=== PATIENT | female | born 1960 | race Caucasian/White ===

== ENCOUNTER 2018-12-23 21:44 | Emergency (ER) | payer OTHER ==
[~2018-12-23] VITALS: Ht 167.6 cm; Wt 90.9 kg
[2018-12-23] MEDS ORDERED: PREM0.3T2 PO (21:51)
[2018-12-23] MEDS ORDERED: OMEP10CASR PO (21:51)
[2018-12-23] MEDS ORDERED: MORPHINE 4 MG/ML 1ML VIAL/SYRINGE (J2270) As Ordered ONE (22:07)
[2018-12-23] MEDS ORDERED: ONDANSETRON 4MG/2ML VIAL (J2405) As Ordered ONE (22:07)
[2018-12-23] MEDS ORDERED: MORPHINE 4 MG/ML 1ML VIAL/SYRINGE (J2270) IV ONE ×2 (22:15→23:15)
[2018-12-23] MEDS ORDERED: ONDANSETRON 4MG/2ML VIAL (J2405) IV ONE (22:15)
[2018-12-23] MEDS ORDERED: PERC5TAB12 PO (22:52)
[2018-12-23] MEDS ORDERED: OXYCODONE/APAP 5MG/325MG(BULK FOR ED) 1 TABLET PO ONE (23:00)
[2018-12-23 23:37] VITALS: BP 100/62
--- NOTE | 2018-12-24 07:40 | REP ---
Right shoulder three views: There is an impacted fracture of the humeral surgical neck. There is no dislocation. Mineralization is normal. The acromioclavicular joint is unremarkable. Electronically Signed by Trip Burns MD 12/24/2018 07:32 A
--- NOTE | 2018-12-24 07:41 | REP ---
Right humerus three views: There is an impacted fracture of the humeral surgical neck. No dislocation. Mineralization is normal. No calcifications or foreign bodies. Electronically Signed by Trip Burns MD 12/24/2018 07:33 A
[2018-12-30] MEDS ORDERED: RED RICE YEAST PO (07:52)
[2018-12-30] MEDS ORDERED: CHOL50002 PO (07:52)
[2018-12-30] MEDS ORDERED: IBUP200C25 PO (07:52)
[2018-12-30] MEDS ORDERED: OYST1TAB PO (07:52)
[2018-12-30] MEDS ORDERED: KRIL300C2 PO (07:52)
[2018-12-30] MEDS ORDERED: NO ITAB PO (07:52)
== END 2018-12-23 23:44 | disposition home or self-care (01) ==
LOC: M ED 21:44
DX: S42.214A Unspecified nondisplaced fracture of surgical neck of right humerus, initial encounter for closed fracture (principal); W19.XXXA Unspecified fall, initial encounter; Y92.099 Unspecified place in other non-institutional residence as the place of occurrence of the external cause; Y93.9 Activity, unspecified; Y99.9 Unspecified external cause status; Z79.890 Hormone replacement therapy; Z79.899 Other long term (current) drug therapy
CPT/HCPCS: 73030; 73060; 96374; 96375; 96376; 99284; J2270; J2405

== ENCOUNTER → 2018-12-28 | Outpatient (CLI) | payer OTHER ==
[~2018-12-28] MED LIST: ACET-683 PO; CHOL50002 PO; IBUP200C25 PO; KRIL300C2 PO; NO ITAB PO; OMEP10CASR PO; OYST1TAB PO; PERC5TAB12 PO; PREM0.3T2 PO; RED RICE YEAST PO
--- NOTE | 2018-12-28 11:27 | REP ---
Clinical: Trauma. Technique: Axial noncontrast images of the right humerus with coronal and sagittal re-formations. Findings: There is a comminuted relatively nondisplaced minimally angulated fracture involving the humeral head through the surgical neck. Small traumatic effusion and post traumatic fat stranding in the surrounding soft tissues of the shoulder noted. Musculature appears relatively intact and no obvious significant focal hematoma is identified. Impression: Comminuted nondisplaced fracture involving the right humeral head through surgical neck. Electronically Signed by Micah Hooper MD 12/28/2018 11:20 A
== END ==
LOC: M RAD 10:50
PROVIDERS: ATTEND Orthopaedic Surgery Sports Medicine
DX: S42.231A 3-part fracture of surgical neck of right humerus, initial encounter for closed fracture (principal); X58.XXXA Exposure to other specified factors, initial encounter; Y92.9 Unspecified place or not applicable

== ENCOUNTER 2019-01-02 10:00 | Day surgery (SDC) | payer OTHER ==
[~2019-01-02] VITALS: Ht 167.6 cm; Wt 92.5 kg
[~2019-01-02 10:00] MED LIST changes: -ACET-683 PO; +LR 1,000 ML IV ONE
[2019-01-02] MEDS ORDERED: ROPIvacaine 0.5% 30 ML INJECTION (J2795 PER 1MG) ONE (10:01)
[2019-01-02] MEDS ORDERED: dexameTHASONE 10 MG/1 ML VIAL PRES.FREE (J1100) ONE (10:01)
[2019-01-02] MEDS ORDERED: ACET-683 PO (10:26)
[2019-01-02] MEDS ORDERED: PROPOFOL 200 MG/20 ML VIAL As Ordered ONE (10:30)
[2019-01-02] MEDS ORDERED: LIDOCAINE 2% INJ 100 MG/5 ML SDV (FOR ANES.) As Ordered ONE (10:30)
[2019-01-02] MEDS ORDERED: ROCURONIUM BROMIDE 50 MG/5 ML VIAL As Ordered ONE (10:31)
[2019-01-02] MEDS ORDERED: ONDANSETRON 4MG/2ML VIAL (J2405) As Ordered ONE (10:32)
[2019-01-02] MEDS ORDERED: dexameTHASONE 4 MG/ML 1ML VIAL (J1100) As Ordered ONE (10:32)
[2019-01-02] MEDS ORDERED: MIDAZOLAM INJ 2 MG/2 ML VIAL (J2250) As Ordered ONE (10:35)
[2019-01-02] MEDS ORDERED: fentaNYL 250 MCG/5 ML INJECTION (J3010) As Ordered ONE (10:35)
[2019-01-02] MEDS ORDERED: TRANEXAMIC ACID 100 MG/ML 10ML VIAL As Ordered ONE (11:38)
[2019-01-02] MEDS ORDERED: ceFAZolin 1GM INJ (J0690 PER 500MG) As Ordered ONE (11:38)
[2019-01-02] MEDS ORDERED: PHENYLephrine HCL 500 MCG/5 ML (100MCG/ML) SYRINGE (J2370) As Ordered ONE (12:08)
[2019-01-02] MEDS ORDERED: SUGAMMADEX SODIUM 500 MG/5 ML VIAL (BRIDION) As Ordered ONE (12:21)
[2019-01-02] MEDS ORDERED: ACETAMINOPHEN 1000MG 100ML IV BTL (OFIRMEV) (J0131 PER 10MG) As Ordered ONE (12:26)
[2019-01-02] MEDS ORDERED: KETOROLAC 60 MG/2 ML VIAL (J1885) As Ordered ONE (12:35)
[2019-01-02] MEDS ORDERED: HYDROmorphone HCL 2 MG/ML 1ML VIAL (J1170) As Ordered ONE (14:23)
[2019-01-02] MEDS ORDERED: ePHEDrine SULFATE 25 MG/5 ML(5MG/ML) SYRINGE As Ordered ONE (14:24)
[2019-01-02] MEDS ORDERED: VANCOMYCIN 1000 MG/20 ML VIAL (J3370) As Ordered ONE (14:46)
[2019-01-02] MEDS ORDERED: BUPIVACAINE LIPOSOME/PF 1.3% 20ML VIAL (13.3MG/ML)(EXPAREL)(C9290 PER1MG) As Ordered ONE (15:07)
[2019-01-02] MEDS ORDERED: BUPIVACAINE HCL 0.25% 10 ML VIAL As Ordered ONE (15:07)
[2019-01-02] MEDS ORDERED: METOCLOPRAMIDE INJ 10MG/2ML VIAL (J2765) IV PRN (16:00)
[2019-01-02] MEDS ORDERED: ONDANSETRON 4MG/2ML VIAL (J2405) IV PRN (16:00)
[2019-01-02] MEDS ORDERED: fentaNYL 100 MCG/2 ML INJECTION (J3010) IV PRN (16:00)
[2019-01-02] MEDS ORDERED: LR 1,000 ML IV SCH ×2 (16:00)
[2019-01-02] MEDS ORDERED: PERCOCET 5MG/325MG TAB PO PRN (16:00)
[2019-01-02 19:00] VITALS: BP 111/63
--- NOTE | 2019-01-03 06:51 | RO ---
DATE OF PROCEDURE: 01/02/2019 PREOPERATIVE DIAGNOSIS: Right proximal humerus fracture. POSTOPERATIVE DIAGNOSIS: Right proximal humerus fracture. PLANNED PROCEDURE: Right proximal humerus open reduction internal fixation, possible fibular strut bone grafting PROCEDURE PERFORMED: Right proximal humerus open reduction internal fixation, fibular strut graft, cancellous allograft, biceps tenotomy and repair subscapularis tendon. SURGEON: Dr. Mina Lemus TIRE TRUCKER: ANESTHESIA: General anesthesia. COATING MACHINE FEEDER: Dr. Bhardwaj OPERATIVE PREAMBLE: This 58-year female fell onto a cement block on the right upper extremity. She sustained a comminuted right proximal humerus fracture. We talked about pros, cons, risks and benefits of going ahead with open reduction internal fixation, strut possible strep grafting given the amount of varus alignment and comminution of the fracture. She wished to proceed. I marked the right upper extremity and reminded her of the specific surgical risks to include, but not limited to infection, pain, stiffness, bleeding, neurovascular injury, delayed mal or nonunion, osteoarthritis, as well as anesthetic complications and . She wished to proceed. I marked the right extremity. OPERATIVE REPORT: The patient brought to the operating theater and placed supine on the operating room table. Plexiglas arm positioner was placed to the right side with a towel on top of that to bring it level with the bed. This was placed to help support the arm. The patient was brought to the edge of the bed, donut head positioner was used and the head slightly tilted to the left. General anesthesia was induced. Two grams of IV Ancef and 2 grams of IV tranexamic acid (TXA) were both administered intravenously prior to the start of the case. The right upper extremity was free draped and prepped and draped in the usual sterile fashion with a stockinette over the hand. A preoperative time out was performed to confirm the site and the patient. Deltopectoral approach was marked in the skin. Ioban was used overlying the incision as well as to hold the drapes in proper position. I made the incision overlying the deltopectoral approach. I carried this dissection down through skin and subcutaneous tissue. I identified the cephalic vein and interval and protected this through the case. I then identified the conjoined tendon. I incised on the lateral aspect of this. I used Kolbel retractors to retract in the interval. I also used deltoid and Darrach retractors to achieve proper visualization. I decompressed the fracture. I removed interposed hematoma and interposed periosteum. The biceps was completely in the fracture displacing things. I identified the biceps groove. I tenotomized the biceps to help with fracture reduction. AP/lateral radiographs were taken throughout the case. The fracture was totally in 90 degrees of varus and nearly 100% displaced with the head going posteriorly. Stay sutures were placed in Prabhu-Giancarlo fashion in the supraspinatus as well as subscapularis tendon. Circumflex humeral vessels were ligated. The subscapularis was tenotomized to again achieve proper reduction and to take away some deforming forces. The fracture was decompressed. Once relative alignment had been achieved with longitudinal traction and internally and externally rotating the arm with intraoperative fluoroscopy, the proximal humerus had quite a large bone void on the metaphyseal region. The calcar had moderate comminution with two large fragments. I elected to go ahead with fibular strut. I pulled a 12cm long fibular strut and unthawed this using warm normal saline. I passed this into the intramedullary canal. It was a little bit too long so I removed approximately 3 or 4 cm off the tip of this. It sat down nicely. I achieved a reduction of the proximal humeral head on top of the fibular graft. This sat down nicely. The medial calcar was well aligned. The greater tuberosity did have one fracture fragment that did achieve a good reduction with traction sutures through the supraspinatus tendon. I then chose the [employer] proximal humerus locking plate. I used a three shaft hole 90 mm long plate. I placed the plate on the lateral surface of the bone. I ensured that it was in a proper position using the screw on locking guide and a pin through the top of that to ensure it was appropriately positioned at the top of the humeral head. I preliminarily pinned this. I then used a 2.5 mm drill with cortical screw in the oblong hole to achieve plate compression of the bone. This achieved good reduction. I then used locking screws in the proximal end of the plate. I ensured on AP/lateral radiographs that these were short of the joint. The very most proximal screw I had to change out from a 32 to a 28 mm as it was little bit prominent on the lateral radiograph, but not piercing the articular surface. At least two or three of the screws went through the fibular allograft proximally. Once I was satisfied with the screw placement proximally, I then inserted the remaining two locking screws into the distal aspect of the plate. I was satisfied with my reduction. I saved final radiographs onto the system. I thoroughly irrigated the wound. I then packed the still remaining bone void anteriorly with cancellous allograft. I sprinkled vancomycin powder into the wound. I repaired the subscapularis tendon to the plate and this appeared anatomic. I then used the stay sutures in the supraspinatus as well to secure that to the plate superiorly. I tied the sutures over the plate as well as to each other and cut these short. These were #2 FiberWire sutures. Range of motion was tested and the fracture was solid. The subcutaneous tissue was closed with running #2-0 Vicryl. The deltopectoral interval was left open. The cephalic vein was protected throughout the case. The subcutaneous tissue was closed with running #3-0 Monocryl. The skin was cleaned with wet and dry dressing followed by application of Steri-Strips. 20 mL of 0.25% Marcaine was mixed together with 20 mL of sterile normal saline as well as 20 mL of Exparel to create a 60 mL solution. This was injected in and around the incision using 25 gauge needle. The wound was dried. Adaptic, 4x8 gauze, as well as ABD with cloth tape was placed over the incision. The right upper extremity was placed into a sling. The patient was awoken from general anesthetic, transferred off the operating table and taken to postanesthesia care unit in stable condition. All sponge, needle and instrument counts were correct. Estimated blood loss was 900 mL. Intraoperative hemoglobin was checked and this measured 10.5. She appeared stable. Blood loss subsided once the fracture was well reduced. PLAN: The patient is to be non weightbearing on her upper extremity and stay in a sling for the next 2 weeks. They can do hand, wrist and elbow exercises 4 to 5 times a day. Pain control will be achieved with oral medications and there has been a prescription sent electronically to their pharmacy. They will be discharged home according to day surgery criteria when they are comfortable. Followup will be in the office in 2 weeks time. JEWELL
--- NOTE | 2019-01-03 08:01 | REP ---
Clinical: Fracture fixation. Technique: Intraoperative fluoroscopic imaging using portable C-arm technique. Findings: The patient is noted to be status post open reduction and fixation for comminuted humeral neck fracture. Satisfactory orthopedic hardware placement and reduction noted. Total fluoroscopic time 1 minute 42 seconds. Impression: Satisfactory open fixation and reduction. Electronically Signed by Micah Hooper MD 01/03/2019 07:53 A
== END 2019-01-02 19:15 | disposition home or self-care (01) ==
LOC: M SDC 10:00
PROVIDERS: ATTEND Orthopaedic Surgery Sports Medicine
DX: S42.201A Unspecified fracture of upper end of right humerus, initial encounter for closed fracture (principal); W19.XXXA Unspecified fall, initial encounter; Y93.9 Activity, unspecified; Y92.89 Other specified places as the place of occurrence of the external cause; Y99.9 Unspecified external cause status; K21.9 Gastro-esophageal reflux disease without esophagitis; Z79.899 Other long term (current) drug therapy
CPT/HCPCS: 23430; 23615; 64415; 76000; 82330; 82947; 84132; 84295; 85014; C1713; C1762; C9290; J0131; J0690; J1100; J1170; J1885; J2250; J2370; J2405; J2795; J3010; J3370

== ENCOUNTER 2019-06-05 06:07 | Day surgery (SDC) | payer OTHER ==
[~2019-06-05] VITALS: Ht 167.6 cm; Wt 100.6 kg
[~2019-06-05 06:07] MED LIST changes: +ACET-683 PO; -LR 1,000 ML IV ONE; +OMEP-221 PO
[2019-06-05] MEDS ORDERED: ROPIvacaine 0.5% 30 ML INJECTION (J2795 PER 1MG) ONE (06:08)
[2019-06-05] MEDS ORDERED: dexameTHASONE 10 MG/1 ML VIAL PRES.FREE (J1100) ONE (06:08)
[2019-06-05] MEDS ORDERED: LIDOCAINE 1% MDV 20ML VIAL ONE (06:08)
[2019-06-05] MEDS ORDERED: ceFAZolin SOD 2 GM in IV 1 EA IV ONE (07:00)
[2019-06-05] MEDS ORDERED: LIDOCAINE 2% INJ 100 MG/5 ML SDV (FOR ANES.) As Ordered ONE (07:00)
[2019-06-05] MEDS ORDERED: fentaNYL 250 MCG/5 ML INJECTION (J3010) As Ordered ONE (07:00)
[2019-06-05] MEDS ORDERED: LR 1,000 ML IV ONE (07:00)
[2019-06-05] MEDS ORDERED: PROPOFOL 200 MG/20 ML VIAL As Ordered ONE (07:00)
[2019-06-05] MEDS ORDERED: ROCURONIUM BROMIDE 50 MG/5 ML VIAL As Ordered ONE (07:00)
[2019-06-05] MEDS ORDERED: MIDAZOLAM INJ 2 MG/2 ML VIAL (J2250) As Ordered ONE ×2 (07:01→07:14)
[2019-06-05] MEDS ORDERED: EPINEPHrine 1MG/ML INJ 30ML MD-VIAL As Ordered ONE (07:09)
[2019-06-05] MEDS ORDERED: LIDOCAINE 1% MDV 20ML VIAL As Ordered ONE (07:09)
[2019-06-05] MEDS ORDERED: fentaNYL 100 MCG/2 ML INJECTION (J3010) As Ordered ONE (07:14)
[2019-06-05] MEDS ORDERED: TRANEXAMIC ACID 100 MG/ML 10ML VIAL As Ordered ONE (07:59)
[2019-06-05] MEDS ORDERED: MIDAZOLAM INJ 2 MG/2 ML VIAL (J2250) IV ONE (08:00)
[2019-06-05] MEDS ORDERED: fentaNYL 100 MCG/2 ML INJECTION (J3010) IV ONE (08:00)
[2019-06-05] MEDS ORDERED: KETOROLAC 60 MG/2 ML VIAL (J1885) As Ordered ONE (08:09)
[2019-06-05] MEDS ORDERED: ONDANSETRON 4MG/2ML VIAL (J2405) As Ordered ONE (08:09)
[2019-06-05] MEDS ORDERED: dexameTHASONE 4 MG/ML 1ML VIAL (J1100) As Ordered ONE (08:09)
[2019-06-05] MEDS ORDERED: SUGAMMADEX SODIUM 500 MG/5 ML VIAL (BRIDION) As Ordered ONE (08:09)
[2019-06-05] MEDS ORDERED: MORPHINE 2 MG/ML 1ML VIAL (J2270) IV PRN (08:45)
[2019-06-05] MEDS ORDERED: PERCOCET 5MG/325MG TAB PO PRN ×2 (08:45→09:00)
[2019-06-05] MEDS ORDERED: LR 1,000 ML IV SCH ×2 (08:45)
[2019-06-05] MEDS ORDERED: ACETAMINOPHEN TAB 650MG DOSE (2X325MG) PO PRN (08:45)
[2019-06-05] MEDS ORDERED: fentaNYL 100 MCG/2 ML INJECTION (J3010) IV PRN (08:45)
[2019-06-05] MEDS ORDERED: ONDANSETRON 4MG/2ML VIAL (J2405) IV PRN ×2 (08:45→09:00)
--- NOTE | 2019-06-05 08:52 | RO ---
DATE OF PROCEDURE: 06/05/2019 PREOPERATIVE DIAGNOSIS: Right shoulder painful bony spicules. POSTOPERATIVE DIAGNOSIS: Right shoulder painful bony spicules. PLANNED PROCEDURE: Right shoulder removal bony spicule. PROCEDURE: Right shoulder removal bony spicule. SURGEON: Dr. Mina Lemus PORTAL DEVELOPER: Dr. Mendoza ANESTHESIA: General anesthetic plus block. OPERATIVE PREAMBLE: This 58-year-old female had a comminuted right proximal humerus fracture. I fixed this with open reduction internal fixation and plating. Unfortunately, she developed pain in her right shoulder with motion. CT showed a small bony fragment that had healed in a perpendicular fashion at the fracture site. We talked about pros, cons, risks, benefits removing this versus nonoperative treatment. I reiterated these risk in preop holding and marked the right upper extremity proceeded with surgery. PROCEDURE: Patient brought to the operating theater. Placed supine on the operating room table. Two grams IV Ancef was administered as well as 2 grams IV tranexamic acid. All bony prominences were padded. SCDs were used on the legs. General anesthesia was induced. The patient was sat up 45 degrees angle. Right upper extremity was prepped draped the usual sterile fashion along ample prep some time over 3 minutes for the preparatory solution to dry. Preop time-out was performed confirming the site, the patient and surgery. I began by incising the mid aspect of the deltopectoral incision overlying the area where the bony fragment was felt. I made a 2 inch incision. I carried this down through skin and subcutaneous tissue. I incised the deltopectoral interval. Bony fragment was palpated dissected around that and removed using rongeur and smoothed down all edges. Bone wax was used to prevent any further bleeding. Range of motion was completed to ensure that there is no other bony fragments or bony irritation the could occur in the same spot. Wound was thoroughly irrigated using normal saline. Subcutaneous tissues closed with interrupted 2-0 Vicryl sutures and skin with 3-0 Monocryl. Skin was cleaned followed by application of Steri-Strips, Adaptic, 4x8 gauze and the dressing with cloth tape. Right upper extremities placed into a sling. The patient awaken from general anesthetic, transferred off the operating table taken postanesthetic care unit stable condition. All sponge, needle, instruments counts were correct. COMPLICATIONS: None. ESTIMATED BLOOD LOSS: 30 mL. PLAN: The patient is to be in a sling for a very brief period time just for comfort. Start some immediate gentle range of motion. Followup in the office in 2 weeks time. Change the dressing in 2 days. The patient's script will be called into the pharmacy electronically. I look forward to seeing her in followup.
[2019-06-05] MEDS ORDERED: PHENYLephrine HCL 500 MCG/5 ML (100MCG/ML) SYRINGE (J2370) As Ordered ONE (09:41)
[2019-06-05 10:40] VITALS: BP 116/75
== END 2019-06-05 11:07 | disposition home or self-care (01) ==
LOC: M SDC 06:07
PROVIDERS: ATTEND Orthopaedic Surgery Sports Medicine
DX: M89.9 Disorder of bone, unspecified (principal); M25.511 Pain in right shoulder; E78.49 Other hyperlipidemia; K21.9 Gastro-esophageal reflux disease without esophagitis; Z87.891 Personal history of nicotine dependence; F41.9 Anxiety disorder, unspecified; F32.9 Major depressive disorder, single episode, unspecified; Z79.899 Other long term (current) drug therapy
CPT/HCPCS: 23150; 64415; 88304; 88311; J0690; J1100; J1885; J2250; J2370; J2405; J2795; J3010